=== PATIENT | male | born 1990 | race Caucasian/White ===

== ENCOUNTER 2017-10-10 17:50 | Observation (INO) ==
[2017-10-10] MEDS ORDERED: *HR* OxyCODONE/APAP 5/325 TABLET PO ONE (18:17)
--- NOTE | 2017-10-10 18:23 | Emergency Department Note ---
Disposition Clinical Impression: Penile trauma Disposition: Still a Patient Condition: Good Referrals: NONE,PCP [Primary Care Provider] - Forms: ED Satisfaction Letter General Adult HPI - General Chief complaint: UC Urogenital-Male Stated complaint: Poss. Penile Fx Time Seen by Provider: 10/10/17 18:04 Source: patient Limitations: no limitations Nursing Notes Reviewed: Yes Vital Signs Reviewed: Yes - History of Present Illness HPI Narrative: 27-year-old male who approximately 36 hours ago was having sex and during coitus had blunt injury against the vulva. He reports possibly hearing a pop and immediate pain. He has had worsening pain/swelling since then. Has been able to urinate, but it is getting more difficult. He reports sometimes being unable to start the stream. No PMH. Takes no medications. No blood in his urine. Radiation: non-radiation Pain Severity: severe Pain Scale: 10 Improves with: nothing Worsens with: movement Associated symptoms: Reports: denies other symptoms Treatments Prior to Arrival: none - Related Data Previous Rx's Medication Instructions Recorded Cyclobenzaprine [Flexeril] 10 mg PO TID PRN #9 tablet 03/14/16 Naproxen [Naprosyn] 500 mg PO BID PRN #15 tablet 03/14/16 Ibuprofen [Motrin] 800 mg PO Q6-8H PRN #30 tablet 10/26/16 Allergies Allergy/AdvReac Type Severity Reaction Status Date / Time No Known Allergies Allergy Verified 03/14/16 14:08 All systems ED: reviewed and negative except as stated. Constitutional: Denies: fever ENT ED: Denies: throat pain Cardiovascular: Denies: chest pain Gastrointestinal: Denies: abdominal pain, nausea, vomiting, diarrhea Genitourinary: Reports: other (genital pain) Integumentary: Denies: rash Neurological: Denies: headache Past Medical History - Past Medical History Medical history: Reports: no medical history Psychiatric history: Reports: no psych history - Social History Smoking Status: Current every day smoker Smokeless Tobacco Status: No Alcohol use: Reports: none Drug use: Reports: none Physical Exam - General Limitations: no limitations General appearance: alert, in no apparent distress - Head Head exam: atraumatic - Eye Eye exam: Present: normal appearance, PERRL - ENT ENT exam: normal exam - Neck Neck exam: Present: normal inspection - Chest Chest inspection: Present: normal inspection - Respiratory Respiratory exam: Present: normal lung sounds bilaterally. Absent: respiratory distress - Cardiovascular Cardiovascular exam: Present: regular rate, normal rhythm - Abdominal Exam Abdominal exam: Present: soft, Non-Tender - Male exam: Present: other (circumcised penis. Edema is present. No contusion noted. Testicles nontender. Cremasteric reflex intact.) - Extremities Exam Extremities exam: Present: normal inspection - Neurological Exam Neurological exam: Present: alert, oriented X3 - Psychiatric Psychiatric exam: Present: normal affect, normal mood - Skin Skin exam: Present: warm, dry Course Course Narrative: Spoke with Dr Tripathi who will see the patient. UA ordered. Signed out to the night team for final disposition of the patient. Vital Signs Temperature 97.7 F 10/10/17 17:55 Pulse Rate 69 10/10/17 17:55 Respiratory Rate 16 10/10/17 17:55 Blood Pressure 138/90 10/10/17 17:55 O2 Sat by Pulse Oximetry 99 10/10/17 17:55 Temperature 97.7 F 10/10/17 17:55 Pulse Rate 69 10/10/17 17:55 Respiratory Rate 16 10/10/17 17:55 Blood Pressure 138/90 10/10/17 17:55 O2 Sat by Pulse Oximetry 99 10/10/17 17:55 Oxygen Delivery Oxygen Delivery Nasal Cannula
--- NOTE | 2017-10-10 18:39 | Emergency Department Note ---
Disposition Clinical Impression: Penile trauma Qualifiers: Encounter type: initial encounter Qualified Code(s): S39.94XA - Unspecified injury of external genitals, initial encounter Disposition: Admitted As Inpatient Condition: Good Referrals: NONE,PCP [Primary Care Provider] - Forms: ED Satisfaction Letter General Adult HPI - General Chief complaint: UC Urogenital-Male Stated complaint: Poss. Penile Fx Time Seen by Provider: 10/10/17 18:04 Source: patient Limitations: no limitations - History of Present Illness Pain Scale: 10 Improves with: nothing Worsens with: movement Associated symptoms: Reports: denies other symptoms Treatments Prior to Arrival: none - Related Data Previous Rx's Medication Instructions Recorded Cyclobenzaprine [Flexeril] 10 mg PO TID PRN #9 tablet 03/14/16 Naproxen [Naprosyn] 500 mg PO BID PRN #15 tablet 03/14/16 Ibuprofen [Motrin] 800 mg PO Q6-8H PRN #30 tablet 10/26/16 Allergies Allergy/AdvReac Type Severity Reaction Status Date / Time No Known Allergies Allergy Verified 03/14/16 14:08 Constitutional: Denies: fever ENT ED: Denies: throat pain Cardiovascular: Denies: chest pain Gastrointestinal: Denies: abdominal pain, nausea, vomiting, diarrhea Genitourinary: Reports: other (genital pain) Integumentary: Denies: rash Neurological: Denies: headache Past Medical History - Past Medical History Medical history: Reports: no medical history Psychiatric history: Reports: no psych history - Social History Smoking Status: Current every day smoker Smokeless Tobacco Status: No Alcohol use: Reports: none Drug use: Reports: none Physical Exam - General Limitations: no limitations General appearance: alert, in no apparent distress Course Vital Signs Temperature 97.7 F 10/10/17 17:55 Pulse Rate 69 10/10/17 17:55 Respiratory Rate 16 10/10/17 17:55 Blood Pressure 138/90 10/10/17 17:55 O2 Sat by Pulse Oximetry 99 10/10/17 17:55 Temperature 97.7 F 10/10/17 17:55 Pulse Rate 69 10/10/17 17:55 Respiratory Rate 16 10/10/17 17:55 Blood Pressure 138/90 10/10/17 17:55 O2 Sat by Pulse Oximetry 99 10/10/17 17:55 Oxygen Delivery Oxygen Delivery Nasal Cannula Attestation Statement - Attestation Attestation: I examined this patient and my medical decision-making was reviewed with the Resident Physician. I agree with the documented findings, disposition and treatment plan as described except to the extent set forth below. 27 brooklynn valentino male presnet to the eD for penile injury. Patient states that 36 hours ago he was having sex and then incurred blunt trauma to the vulva. WE will obtain a UA and hten consult urology for evaluation. Dr. Tripathi will take him to the OR for evaluation. admitted.
--- NOTE | 2017-10-10 19:03 | Urology History & Physical ---
Date of Encounter: 10/10/17 Time of Encounter: 19:01 Assessment and Plan (1) Penile fracture Current Visit: Yes Status: Acute 27-year-old man with concern for penile fracture. His history and exam are concerning. I recommend proceeding with penile expiration and repair of penile fracture. We discussed the risks of the surgery which include but are not limited to bleeding, infection, injury to structures, need for further procedures, Peyronie's disease, erectile dysfunction, change in sexual satisfaction, and possible urethral injury. He has a history of hypospadias repair and there is a risk of injury to his neourethra with possible fistula. He is also aware of the risk of anesthesia. He is willing to proceed. Qualifiers: Encounter type: initial encounter Qualified Code(s): S39.840A - Fracture of corpus cavernosum penis, initial encounter History of Present Illness Chief complaint: Penile pain / fracture HPI: Mr. Mendoza is a 27 year old male who reports concern for a possible penile fracture. He was having intercourse about 2 days ago. His female partner was on top facing him. He reports that his penis came out of the vagina and she came down upon it. He felt a pop and lost his erection. He noted swelling and he used ice. He went to work the next 2 days. Today, the pain was too severe. He did try to have intercourse yesterday, but he was not able to achieve an erection. His pain is moderate to intense. The swelling and ecchymosis seem a bit better after icing his penis. Past Med Surg Social Fam HX - Past Medical History Medical history: no medical history Psychiatric history: no psych history - Social History Smoking Status: Current every day smoker Smokeless Tobacco Status: No Alcohol use: none Drug use: none - Family History Father Hx Family Genitourinary Disorders: No Medications and Allergies Cyclobenzaprine [Flexeril] 10 mg PO TID PRN #9 tablet 03/14/16 [Rx] Naproxen [Naprosyn] 500 mg PO BID PRN #15 tablet 03/14/16 [Rx] Ibuprofen [Motrin] 800 mg PO Q6-8H PRN #30 tablet 10/26/16 [Rx] 3 Allergy/AdvReac Type Severity Reaction Status Date / Time No Known Allergies Allergy Verified 03/14/16 14:08 Review of Systems - Constitutional no chills, no fever(s) - EENT Nose, mouth and throat: no dizziness - Cardiovascular no chest pain - Respiratory no dyspnea - Gastrointestinal no nausea, no vomiting - Genitourinary genital pain, no flank pain, no hematuria - Musculoskeletal no back pain - Integumentary no erythema, no rash - Neurological no weakness - Psychiatric no suicidal ideation - Hematologic/Lymphatic no easy bleeding - Allergic/Immunologic no wheezing Exam Initial Vital Signs Temp Pulse Resp BP Pulse Ox 97.7 F 69 16 138/90 99 10/10/17 17:55 10/10/17 17:55 10/10/17 17:55 10/10/17 17:55 10/10/17 17:55 - General physical appearance Present: well developed, well nourished, no distress - Eyes Absent: icteric - ENT Present: normal nares - Neck Present: trachea midline - Respiratory Present: normal respiratory effort - Cardiovascular Cardiovascular exam IM: RRR - Abdomen Abdomen: Present: soft, non tender - Genitourinary other (Circumcised penis with likely prior hypospadias repair. There is ecchymosis along the right aspect of the penis near the penile scrotal junction. There appears to be hematoma there. There is no blood at the meatus. ) - Integumentary Present: no rash - Neurologic Present: normal coordination - Musculoskeletal Present: normal gait Urology Results - Labs All other labs normal.
[2017-10-10] MEDS ORDERED: Lidocaine -MPF 4% 5 ML AMPUL ONE (19:28)
[2017-10-10] MEDS ORDERED: *HR* FentaNYL (PF) 100 MCG/2 ML VIAL ONE ×2 (19:28→21:12)
[2017-10-10] MEDS ORDERED: Lidocaine -MPF 2% 2 ML VIAL ONE (19:28)
[2017-10-10] MEDS ORDERED: *HR* Midazolam HCl 2 MG/2 ML VIAL ONE (19:29)
[2017-10-10] MEDS ORDERED: *HR* Propofol 200 MG/20 ML VIAL IVP ONE (19:29)
[2017-10-10] MEDS ORDERED: Metoclopramide 10 MG/2 ML VIAL ONE (19:43)
[2017-10-10] MEDS ORDERED: Acetaminophen IV 1,000 MG/100 ML INFUS..BTL ONE (19:43)
[2017-10-10] MEDS ORDERED: Famotidine 20 MG/2 ML VIAL ONE (19:44)
[2017-10-10] MEDS ORDERED: Pregabalin 75 MG CAPSULE ONE (19:46)
--- NOTE | 2017-10-10 19:52 | Anesthesia Evaluation PreOp ---
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 (Anxiety/Depression s/p suicide attempt 03/2017) Other Medical History: Denies Any Significant HX Anesthesia History: No Prior Anesthetic Complications, Past Anesthesia ( Hypospadius repair, Appy, L-wrist repair [s/p suicide attempt 03/2017], Ankle fracture), (NO FamHx of ) Alcohol Use: none Drug use: none Medications and Allergies Cyclobenzaprine [Flexeril] 10 mg PO TID PRN #9 tablet 03/14/16 [Rx] Naproxen [Naprosyn] 500 mg PO BID PRN #15 tablet 03/14/16 [Rx] Ibuprofen [Motrin] 800 mg PO Q6-8H PRN #30 tablet 10/26/16 [Rx] 3 Allergy/AdvReac Type Severity Reaction Status Date / Time No Known Allergies Allergy Verified 03/14/16 14:08 - Meds/Allergy Pre-op Review Medications Reviewed: Yes Allergies Reviewed: Yes Beta Blockers on Current Med List: No Anesthesia Exam Vital Signs Temp Pulse Resp BP Pulse Ox 10/10/17 19:01 79 16 131/75 97 10/10/17 17:55 97.7 F 69 16 138/90 99 Intake and Output 10/10/17 10/10/17 10/10/17 07:59 15:59 23:59 Other: Weight 81.647 kg Patient Weight 10/10/17 23:59 Weight 81.647 kg Height: 5'8 Weight: 180# BMI = 27 NPO (# of Hours): 12 Noon sips. 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 Caden Nguyen MD
[2017-10-10] MEDS ORDERED: Albuterol 2.5 MG/3 ML NEBULIZER ONE (19:53)
[2017-10-10] MEDS ORDERED: Lidocaine 1% 20 ML MDV ONE (19:55)
[2017-10-10] MEDS ORDERED: Dexamethasone 4 MG/ML VIAL ONE (21:07)
[2017-10-10] MEDS ORDERED: Ondansetron 4 MG/2 ML VIAL ONE (21:07)
[2017-10-10] MEDS ORDERED: Ketorolac 30 MG/ML VIAL ONE (21:10)
--- NOTE | 2017-10-10 21:26 | Operative Note ---
Date of procedure: 10/10/17 Pre-op diagnosis: Penile injury, possible penile fracture Post-op diagnosis: other (Penile hematoma) Procedure: Penile exploration Implants: None Complications: None Anesthesia: ALPHONSE Surgeon: Daryl Tripathi Was there an boilermaker's assistant present: No Estimated blood loss (cc): 2 Specimen: none Condition: stable Disposition: PACU Procedure in Detail: Indications: The patient is a 27-year-old man who was having intercourse 2 days ago. His partner was on top and his penis came out of her vagina. She came down upon his penis. He heard a popping sound and losses erection. He had some bruising to his penis. He presented to the emergency room with pain. He had bruising and edema along the right lateral aspect of his penis. I was concern for penile fracture. I recommend proceeding with penile exploration. I informed him of the risks of the surgery which include but are not limited to bleeding, infection, injury to structures, need for further procedures, Peyronie's disease , erectile dysfunction, urethral fistula, and the risk of anesthesia. He has a previous history of hypospadias. Procedure: After informed consent was obtained, the patient was brought back to the operating room and placed in the supine position. A timeout was performed. Gen. anesthesia was then administered and a laryngeal mask airway was placed. His lower abdomen and genitalia were prepped and draped usual sterile fashion. An incision was marked out along the ventral aspect of the penis down the median raphae. Berger catheter was then placed. Clear urine returned. Local anesthetic was infiltrated in the wound. The skin was incised using the scalpel. Cautery was used to dissect down through the dartos layer. The urethra was identified and reflected laterally. I explored the right corpora. Araiza's fascia was identified and opened sharply. Araiza's fascia was dissected off the corpora superior and inferiorly. I did not identify any hematoma. The left corpora was identified. There was no hematoma over the skin along the left side. I did not see any concern for hematoma along the left corpora. The skin was reflected off the right corpora well. I could palpate the hematoma , and it was indeed more superficial. A superficial penile vein seemed thrombosed. At this point I was confident there was no corporal fracture and proceeded to close. The wound was irrigated. Araiza's fascia was closed in a running fashion using 3-0 Vicryl suture. The dartos layer was closed in a running fashion using 3-0 Vicryl suture as well. The skin was closed in a running horizontal mattress fashion using 4-0 Monocryl suture. Dermabond was applied to the wound. His Berger catheter was removed. The patient was then awakened from general anesthesia and brought to the recovery room in good condition. All sponge, needle, and instrument counts were correct.
[2017-10-10] MEDS ORDERED: OXYCODONE Oral CONC 10 MG/0.5 ML ORAL.SYG SL PRN (22:15)
[2017-10-10] MEDS ORDERED: Ondansetron 4 MG/2 ML VIAL IVP PRN (22:15)
[2017-10-10] MEDS ORDERED: 0.9 % Sodium Chloride 1,000 ML IVC SCH (22:15)
[2017-10-10] MEDS ORDERED: Acetaminophen 325 MG TABLET PO PRN (22:15)
[2017-10-10] MEDS ORDERED: Naloxone 0.4 MG/ML INJ IVP PRN (22:15)
[2017-10-10] MEDS ORDERED: Ketorolac 15 MG/ML VIAL IVP PRN (22:15)
--- NOTE | 2017-10-10 22:23 | Anesthesia Evaluation Post Op ---
Date of Encounter: 10/10/17 Time of Encounter: 22:15 - Vital Signs Vital Signs: Vital Signs/O2 Sat/Glucose, Most Current Temp Pulse Resp BP Pulse Ox 10/10/17 22:06 98.5 F 72 14 116/65 99 10/10/17 21:56 98.5 F 77 14 104/66 97 10/10/17 21:46 89 14 108/62 98 10/10/17 21:36 79 14 107/58 97 10/10/17 21:26 98.6 F 84 14 84/47 98 10/10/17 19:01 79 16 131/75 97 - Lungs Lungs: Clear Ascult./Percussion - Airway Airway: Non-obstructed - Cardiovascular Regular Rate - Mental Status Mental Status: Asleep with brisk response to light stimulation - Pain Pain Scale: 1 Pain Scale used: Sanders-Alanis (Faces) (1) - Nausea Vomiting Nausea Vomiting: Not Present - Hydration Hydration: Ice chips, Has not voided - Discharge PostOp Status: Transfer Patient to floor Anes Supervising Prov Stmt: Pt seen/evaluated, VSS and pt has met criteria for discharge to floor. - MD Wendy
[2017-10-10] MEDS: *HR* OxyCODONE Immed Rel 5 MG TABLET PO PRN (22:30)
[2017-10-11] MEDS: *HR* OxyCODONE Immed Rel 5 MG TABLET PO PRN (06:37)
[2017-10-11 07:29] VITALS: BP 117/72
--- NOTE | 2017-10-11 09:00 | Discharge Summary ---
Date of Encounter: 10/11/17 Time of Encounter: 09:00 - Discharge Diagnosis (1) Penile trauma Priority: Primary Status: Acute Qualifiers: Encounter type: initial encounter Qualified Code(s): S39.94XA - Unspecified injury of external genitals, initial encounter - Hospital Course Hospital course: Mr. Mendoza is a 27 year old male was admitted for concern for penile fracture. On 10/10/2017 he underwent a penile exploration. No fracture to the corpora was noted at surgery. He was admitted overnight for observation. On POD #1 he was doing well. His wound was healing appropriately. His pain was well controlled. He was discharged home. - Time Spent with Patient Total time spent providing and/or coordinating discharge services: Less than 30 minutes - Discharge Medications Prescriptions: OxyCODONE/APAP 5/325 [Percocet 5/325 MG] 1 each PO Q4HR PRN 5 Days #20 tablet PRN Reason: Pain Docusate [Colace] 100 mg PO BID #60 capsule Home Medications: Cyclobenzaprine [Flexeril] 10 mg PO TID PRN #9 tablet 03/14/16 [Rx] Naproxen [Naprosyn] 500 mg PO BID PRN #15 tablet 03/14/16 [Rx] Ibuprofen [Motrin] 800 mg PO Q6-8H PRN #30 tablet 10/26/16 [Rx] Docusate [Colace] 100 mg PO BID #60 capsule 10/11/17 [Rx] OxyCODONE/APAP 5/325 [Percocet 5/325 MG] 1 each PO Q4HR PRN 5 Days #20 tablet [Rx] Allergies/Adverse Reactions: 3 Allergy/AdvReac Type Severity Reaction Status Date / Time No Known Allergies Allergy Verified 03/14/16 14:08 Date of admission: 10/10/17 19:13 Primary care physician: PCP NONE Discharging clinician: Daryl Tripathi Anticipated date of discharge: 10/11/17 Exam Initial Vital Signs Temp Pulse Resp BP Pulse Ox 97.7 F 69 16 138/90 99 10/10/17 17:55 10/10/17 17:55 10/10/17 17:55 10/10/17 17:55 10/10/17 17:55 - General physical appearance Present: well developed, well nourished, no distress - Eyes Absent: icteric - ENT Present: normal nares - Neck Present: trachea midline - Respiratory Present: normal respiratory effort - Cardiovascular Cardiovascular exam IM: RRR - Abdomen Abdomen: Present: soft - Genitourinary other (Median raphe incicision is healing well. Penis with edema and ecchymosis.) - Integumentary Present: no rash - Neurologic Present: normal coordination - Musculoskeletal Present: normal gait - Patient Status Disposition: Home, Self-Care Condition: Good Functional capacity at discharge: independent ambulation Overall status at discharge: patient is progressing back to baseline - Discharge Instructions Follow Up With: Daryl Tripathi MD [Partnered Physician] - (2 weeks.) Additional Instructions: 1. No heavy lifting greater than 20 pounds x2 weeks. 2. No tub baths x2 weeks. 3. May shower. 4. He should follow up in 2 weeks for postoperative check. 5. He should return for any fevers, chills, nausea, vomiting, or significant swelling/ecchymosis. 6. No sexual activity x 4 weeks. 7. Please provide work excuse x 2 weeks. - Diet and Activity Activity: increase activity as tolerated Diet: advance to your usual diet - VTE Documentation of Mechanical Device: Intermittent pneumatic compression device
== END 2017-10-11 10:28 | disposition home or self-care (01) ==
LOC: EMEROO 17:50 → 3ANU 17:50
PROVIDERS: ADMIT Urology; ATTEND Urology

== ENCOUNTER 2021-11-28 14:44 | Inpatient (IN) ==
[2021-11-28 16:49] LABS: Basophils % 0.2 %; Eosinophils # 0.2 K/mcL (0.0-0.6); Eosinophils % 0.7 %; Hematocrit 38.5 % (37.5-50.1); Hemoglobin 12.1 g/dL (12.9-16.9); Immature Granulocytes % 0.7 % (0-4); Lymphocytes # 2.7 K/mcL (0.6-4.6); Lymphocytes % 12.5 %; Mean Corpuscular HGB Conc 31.4 g/dL (31.6-35.5); Mean Corpuscular Hemoglobin 26.4 pg (28.0-33.3); Mean Corpuscular Volume 84.1 fL (83.0-100.0); Mean Platelet Volume 9.5 fL (9.4-12.4); Monocytes # 1.2 K/mcL (0.0-1.3); Monocytes % 5.6 %; Neutrophils # 17.3 K/mcL (1.6-8.9); Platelet Count 251 K/mcL (140-400); Red Blood Count 4.58 M/mcL (4.19-5.50); Red Cell Distribution Width 14.1 % (11.5-14.5); Segmented Neutrophils % 80.3 %; White Blood Count 21.6 K/mcL (4.3-11.1)
[2021-11-28] MEDS ORDERED: Iopamidol - 370 500 ML MLS IVP ONE (17:09)
[2021-11-28] MEDS ORDERED: Piperacillin/Tazobactam 3.375 GM in 0.9 % Sodium Chloride Mini Bag 100 ML IVPB ONE (17:09)
[2021-11-28] MEDS ORDERED: 0.9 % Sodium Chloride 1,000 ML IVC ONE (17:09)
[2021-11-28] MEDS ORDERED: *HR* FentaNYL (PF) 100 MCG/2 ML VIAL IVP ONE (17:09)
[2021-11-28 17:11] LABS: Alanine Aminotransferase 50 Units/L (7-52); Albumin 3.8 g/dL (3.5-5.7); Albumin/Globulin Ratio 1.2 (1.1-2.2); Alkaline Phosphatase 102 Units/L (34-104); Aspartate Amino Transferase 34 Units/L (13-39); BUN/Creatinine Ratio 20 (6-26); Bilirubin,Total 0.5 mg/dL (0.3-1.0); Blood Urea Nitrogen 17 mg/dL (6-20); Calcium 9.3 mg/dL (8.6-10.3); Carbon Dioxide 31 mEq/L (23-29); Chloride 101 mEq/L (98-107); Globulin 3.3 g/dL (2.4-3.5); Glucose 111 mg/dL (70-105); Osmolality,Calculated 288 (280-300); Potassium 3.7 mEq/L (3.5-5.1); Sodium 138 mEq/L (136-145); Total Protein 7.1 g/dL (6.4-8.9); eGFR For African Americans > 60 (> 60); eGFR For Non-African Americans > 60 (> 60)
[2021-11-28] MEDS ORDERED: Naloxone 0.4 MG/ML INJ IVP PRN (20:18)
[2021-11-28] MEDS ORDERED: Ondansetron 4 MG/2 ML VIAL IVP PRN (20:18)
[2021-11-28] MEDS ORDERED: Acetaminophen 325 MG TABLET PO PRN (20:18)
[2021-11-28] MEDS ORDERED: Melatonin 3 MG TABLET PO PRN (20:18)
[2021-11-28] MEDS: *HR* OxyCODONE Immed Rel 5 MG TABLET PO PRN (20:45)
[2021-11-28] MEDS ORDERED: Ringers Solution, Lactated 1,000 ML IVC ONE (21:05)
[2021-11-28] MEDS: Vancomycin 1,500 MG/265 ML IV.SOLN IVPB SCH (23:01)
[2021-11-29] MEDS: *HR* HYDROcodone/Acet 5/325 mg TABLET PO PRN (00:40)
[2021-11-29 05:19] LABS: Basophils % 0.2 %; Eosinophils # 0.2 K/mcL (0.0-0.6); Eosinophils % 1.1 %; Hematocrit 34.1 % (37.5-50.1); Hemoglobin 10.8 g/dL (12.9-16.9); Immature Granulocytes % 0.7 % (0-4); Lymphocytes # 2.5 K/mcL (0.6-4.6); Lymphocytes % 13.6 %; Mean Corpuscular HGB Conc 31.7 g/dL (31.6-35.5); Mean Corpuscular Hemoglobin 26.9 pg (28.0-33.3); Mean Platelet Volume 9.6 fL (9.4-12.4); Monocytes # 1.2 K/mcL (0.0-1.3); Monocytes % 6.6 %; Platelet Count 240 K/mcL (140-400); Red Blood Count 4.01 M/mcL (4.19-5.50); Red Cell Distribution Width 14.4 % (11.5-14.5); Segmented Neutrophils % 77.8 %
[2021-11-29 05:48] LABS: BUN/Creatinine Ratio 15 (6-26); Blood Urea Nitrogen 13 mg/dL (6-20); Calcium 8.6 mg/dL (8.6-10.3); Carbon Dioxide 25 mEq/L (23-29); Chloride 104 mEq/L (98-107); Glucose 107 mg/dL (70-105); Magnesium 1.8 mg/dL (1.6-2.6); Osmolality,Calculated 283 (280-300); Potassium 4.3 mEq/L (3.5-5.1); Sodium 136 mEq/L (136-145); eGFR For African Americans > 60 (> 60); eGFR For Non-African Americans > 60 (> 60)
[2021-11-29] MEDS: *HR* Heparin 5,000 UNIT/ML VIAL SQ SCH ×3 (06:24→22:22)
[2021-11-29] MEDS: levoFLOXacin 750 MG/150 ML 750 MG/150 ML BAG IVPB SCH (09:33)
[2021-11-29] MEDS: *HR* OxyCODONE Immed Rel 5 MG TABLET PO PRN ×2 (09:38→19:44)
[2021-11-29] MEDS: Vancomycin 1,500 MG/265 ML IV.SOLN IVPB SCH ×2 (09:50→22:22)
[2021-11-30] MEDS: *HR* OxyCODONE Immed Rel 5 MG TABLET PO PRN ×3 (06:16→20:31)
[2021-11-30] MEDS: *HR* Heparin 5,000 UNIT/ML VIAL SQ SCH ×3 (06:16→20:31)
[2021-11-30] MEDS: levoFLOXacin 750 MG/150 ML 750 MG/150 ML BAG IVPB SCH (08:50)
[2021-11-30] MEDS: *HR* HYDROcodone/Acet 5/325 mg TABLET PO PRN ×2 (08:55→23:45)
[2021-11-30 10:49] LABS: Basophils % 0.3 %; Eosinophils # 0.2 K/mcL (0.0-0.6); Eosinophils % 1.1 %; Hematocrit 37.4 % (37.5-50.1); Hemoglobin 11.9 g/dL (12.9-16.9); Immature Granulocytes % 0.9 % (0-4); Lymphocytes # 2.9 K/mcL (0.6-4.6); Lymphocytes % 21.1 %; Mean Corpuscular HGB Conc 31.8 g/dL (31.6-35.5); Mean Corpuscular Hemoglobin 26.4 pg (28.0-33.3); Mean Corpuscular Volume 83.1 fL (83.0-100.0); Mean Platelet Volume 9.4 fL (9.4-12.4); Monocytes # 0.9 K/mcL (0.0-1.3); Monocytes % 6.5 %; Neutrophils # 9.7 K/mcL (1.6-8.9); Platelet Count 258 K/mcL (140-400); Red Cell Distribution Width 14.7 % (11.5-14.5); Segmented Neutrophils % 70.1 %; White Blood Count 13.8 K/mcL (4.3-11.1)
[2021-11-30 10:56] LABS: BUN/Creatinine Ratio 17 (6-26); Blood Urea Nitrogen 15 mg/dL (6-20); C-Reactive Protein 162 mg/L (Less than 10); Calcium 9.1 mg/dL (8.6-10.3); Carbon Dioxide 26 mEq/L (23-29); Chloride 102 mEq/L (98-107); Glucose 140 mg/dL (70-105); Magnesium 1.9 mg/dL (1.6-2.6); Osmolality,Calculated 283 (280-300); Phosphorous 2.5 mg/dL (2.7-4.5); Potassium 3.6 mEq/L (3.5-5.1); Sodium 135 mEq/L (136-145); eGFR For African Americans > 60 (> 60); eGFR For Non-African Americans > 60 (> 60)
[2021-11-30] MEDS: Vancomycin 1,500 MG/265 ML IV.SOLN IVPB SCH (11:58)
[2021-11-30] MEDS: Vancomycin 1,750 MG/517.5 ML IV.SOLN IVPB SCH ×2 (12:46→23:44)
[2021-11-30 13:28] LABS: Amphetamine Screen,Urine Positive ng/mL (Cutoff=1000); Barbiturate Screen,Urine Negative ng/mL (Cutoff=200); Benzodiazepines Screen,Urine Negative ng/mL (Cutoff=200); Cannabinoid Screen,Urine Positive ng/mL (Cutoff = 50); Cocaine Screen,Urine Negative ng/mL (Cutoff= 300); Opiate Screen,Urine Positive ng/mL (Cutoff=300); Phencyclidine Screen,Urine Negative ng/mL (Cutoff=25)
[2021-12-01] MEDS: *HR* OxyCODONE Immed Rel 5 MG TABLET PO PRN ×2 (02:32→10:25)
[2021-12-01] MEDS: *HR* Heparin 5,000 UNIT/ML VIAL SQ SCH (07:05)
[2021-12-01 07:35] VITALS: BP 129/78; PULSE 86; TEMP 98.4; O2SAT 96
[2021-12-01 08:01] LABS: Basophils % 0.2 %; Eosinophils # 0.1 K/mcL (0.0-0.6); Eosinophils % 1.2 %; Hematocrit 35.2 % (37.5-50.1); Hemoglobin 11.2 g/dL (12.9-16.9); Immature Granulocytes % 0.7 % (0-4); Lymphocytes # 3.1 K/mcL (0.6-4.6); Lymphocytes % 29.4 %; Mean Corpuscular HGB Conc 31.8 g/dL (31.6-35.5); Mean Corpuscular Hemoglobin 26.4 pg (28.0-33.3); Mean Platelet Volume 9.2 fL (9.4-12.4); Monocytes # 0.7 K/mcL (0.0-1.3); Monocytes % 6.6 %; Neutrophils # 6.5 K/mcL (1.6-8.9); Platelet Count 295 K/mcL (140-400); Red Blood Count 4.24 M/mcL (4.19-5.50); Red Cell Distribution Width 14.6 % (11.5-14.5); Segmented Neutrophils % 61.9 %; White Blood Count 10.6 K/mcL (4.3-11.1)
[2021-12-01 08:15] LABS: BUN/Creatinine Ratio 19 (6-26); Blood Urea Nitrogen 17 mg/dL (6-20); Carbon Dioxide 27 mEq/L (23-29); Chloride 106 mEq/L (98-107); Glucose 100 mg/dL (70-105); Osmolality,Calculated 290 (280-300); Sodium 139 mEq/L (136-145); eGFR For African Americans > 60 (> 60); eGFR For Non-African Americans > 60 (> 60)
[2021-12-01] MEDS: levoFLOXacin 750 MG/150 ML 750 MG/150 ML BAG IVPB SCH (10:25)
== END 2021-12-01 14:30 | disposition home or self-care (01) | DRG 720 ==
LOC: 4WAOSI 14:44 → EMEROOARM 14:44 → SUATTDRO 19:26 → 4WAOSI 20:12
PROVIDERS: ADMIT Family Medicine; ATTEND Internal Medicine